=== PATIENT | male | born 1965 | race Caucasian/White ===

== ENCOUNTER 2019-05-17 11:52 | Observation (INO) ==
[2019-05-17] MEDS ORDERED: Naloxone 0.4 MG/ML INJ IVP PRN (14:06)
[2019-05-17] MEDS ORDERED: *HR* LORazepam 2 MG/ML VIAL IVP PRN (14:10)
[2019-05-17] MEDS ORDERED: Ipratropium/Albuterol Neb 3 ML IH PRN (14:30)
[2019-05-17] MEDS ORDERED: Aspirin 325 MG TABLET PO ONE (14:38)
[2019-05-17] MEDS ORDERED: *HR* Heparin 5,000 UNIT/ML VIAL IVP PRN ×2 (15:16)
[2019-05-17] MEDS ORDERED: Heparin 25,000 UNIT/250 ML D5W 25,000 UNIT/250 ML IV.SOLN IVC SCH (15:30)
[2019-05-17] MEDS ORDERED: Acetaminophen 325 MG TABLET PO ONE (15:34)
[2019-05-17 16:07] LABS: INR 1.1
[2019-05-17 16:08] LABS: Heparin anti-factor XA UFH 0.16 IU/mL (0.30-0.70)
[2019-05-17] MEDS: *HR* LORazepam 2 MG/ML VIAL IVP PRN ×3 (17:16→22:40)
[2019-05-17] MEDS: Ondansetron ODT 4 MG TAB.RAPDIS SL PRN (17:16)
[2019-05-17] MEDS ORDERED: Perflutren Lipid Microsphere 1.3 ML in 0.9 % Sodium Chloride 8.7 ML IVP ONE (17:47)
[2019-05-18] MEDS: *HR* LORazepam 2 MG/ML VIAL IVP PRN ×6 (00:18→23:10)
[2019-05-18] MEDS: Acetaminophen 325 MG TABLET PO PRN ×3 (00:19→19:55)
[2019-05-18 05:27] LABS: Hematocrit 31.7 % (37.5-50.1); Hemoglobin 10.6 g/dL (12.9-16.9); Mean Corpuscular HGB Conc 33.4 g/dL (31.6-35.5); Mean Corpuscular Hemoglobin 30.8 pg (28.0-33.3); Mean Corpuscular Volume 92.2 fL (83.0-100.0); Mean Platelet Volume 9.9 fL (9.4-12.4); Platelet Count 150 K/mcL (140-400); Red Blood Count 3.44 M/mcL (4.19-5.50); Red Cell Distribution Width 13.3 % (11.5-14.5); White Blood Count 7.6 K/mcL (4.3-11.1)
[2019-05-18 05:36] LABS: BUN/Creatinine Ratio 22 (6-26); Blood Urea Nitrogen 24 mg/dL (6-20); Calcium 8.8 mg/dL (8.6-10.3); Carbon Dioxide 25 mEq/L (23-29); Chloride 108 mEq/L (98-107); Glucose 104 mg/dL (70-105); Magnesium 1.7 mg/dL (1.6-2.6); Osmolality,Calculated 290 (280-300); Phosphorous 3.2 mg/dL (2.7-4.5); Potassium 3.9 mEq/L (3.5-5.1); Sodium 138 mEq/L (136-145); eGFR For African Americans > 60 (> 60); eGFR For Non-African Americans > 60 (> 60)
[2019-05-18] MEDS: Ondansetron ODT 4 MG TAB.RAPDIS SL PRN ×2 (05:48→13:47)
[2019-05-18] MEDS: Vitamin B Complex/Vit C/Vit E 1 EACH TABLET PO SCH (08:39)
[2019-05-18] MEDS: lisinopriL 20 MG TABLET PO SCH (08:40)
[2019-05-18] MEDS: Nicotine 14 MG PATCH.TD24 TD SCH (08:40)
[2019-05-18] MEDS: Aspirin 81 MG TAB.CHEW PO SCH (08:40)
[2019-05-18] MEDS: Folic Acid 1 MG TABLET PO SCH (08:40)
[2019-05-18] MEDS: Thiamine (B-1) 100 MG TABLET PO SCH (08:40)
[2019-05-18] MEDS: Ipratropium/Albuterol Neb 3 ML IH SCH ×2 (13:12→15:17)
[2019-05-18] MEDS: *HR* Heparin 5,000 UNIT/ML VIAL SQ SCH (17:45)
[2019-05-18] MEDS: Levalbuterol Neb 1.25 MG/3 ML IH SCH (21:40)
[2019-05-18] MEDS: *HR* LORazepam 1 MG TABLET PO SCH (22:10)
[2019-05-19] MEDS: *HR* LORazepam 2 MG/ML VIAL IVP PRN ×5 (00:33→23:49)
[2019-05-19] MEDS: Ondansetron ODT 4 MG TAB.RAPDIS SL PRN ×2 (00:33→23:39)
[2019-05-19 02:28] LABS: Basophils # 0.1 K/mcL (0.0-0.2); Basophils % 0.6 %; Eosinophils # 0.2 K/mcL (0.0-0.6); Eosinophils % 2.2 %; Hematocrit 33.4 % (37.5-50.1); Hemoglobin 11.2 g/dL (12.9-16.9); Immature Granulocytes % 0.5 % (0-4); Lymphocytes # 1.3 K/mcL (0.6-4.6); Lymphocytes % 17.4 %; Mean Corpuscular HGB Conc 33.5 g/dL (31.6-35.5); Mean Corpuscular Hemoglobin 31.5 pg (28.0-33.3); Mean Corpuscular Volume 93.8 fL (83.0-100.0); Mean Platelet Volume 10.5 fL (9.4-12.4); Monocytes # 0.3 K/mcL (0.0-1.3); Monocytes % 4.2 %; Neutrophils # 5.8 K/mcL (1.6-8.9); Platelet Count 159 K/mcL (140-400); Red Blood Count 3.56 M/mcL (4.19-5.50); Red Cell Distribution Width 13.5 % (11.5-14.5); Segmented Neutrophils % 75.1 %; White Blood Count 7.7 K/mcL (4.3-11.1)
[2019-05-19 02:30] LABS: Prothrombin Time 11.9 Seconds (9.4-12.1)
[2019-05-19 02:46] LABS: Calcium 8.8 mg/dL (8.6-10.3); Phosphorous 3.3 mg/dL (2.7-4.5); Potassium 3.7 mEq/L (3.5-5.1)
[2019-05-19] MEDS: Levalbuterol Neb 1.25 MG/3 ML IH SCH ×4 (03:34→22:15)
[2019-05-19] MEDS: *HR* Heparin 5,000 UNIT/ML VIAL SQ SCH ×2 (04:50→17:11)
[2019-05-19] MEDS: lisinopriL 20 MG TABLET PO SCH (09:00)
[2019-05-19] MEDS ORDERED: 0.9 % Sodium Chloride 1,000 ML IVC SCH (09:00)
[2019-05-19] MEDS: Vitamin B Complex/Vit C/Vit E 1 EACH TABLET PO SCH (09:00)
[2019-05-19] MEDS: Thiamine (B-1) 100 MG TABLET PO SCH (09:00)
[2019-05-19] MEDS: Folic Acid 1 MG TABLET PO SCH (09:00)
[2019-05-19] MEDS: Nicotine 14 MG PATCH.TD24 TD SCH (09:01)
[2019-05-19] MEDS: Aspirin 81 MG TAB.CHEW PO SCH (09:02)
[2019-05-19] MEDS: *HR* LORazepam 1 MG TABLET PO SCH ×2 (09:02→20:41)
[2019-05-19] MEDS: cloNIDine HCL 0.1 MG TABLET PO SCH ×2 (17:11→20:41)
[2019-05-19] MEDS: predniSONE 20 MG TABLET PO SCH (17:11)
[2019-05-19] MEDS: Nicotine 21 MG PATCH.TD24 TD SCH ×2 (21:42→23:36)
[2019-05-20 01:03] LABS: Basophils % 0.3 %; Eosinophils % 0.1 %; Hematocrit 31.7 % (37.5-50.1); Hemoglobin 10.5 g/dL (12.9-16.9); Immature Granulocytes % 0.7 % (0-4); Lymphocytes # 0.4 K/mcL (0.6-4.6); Mean Corpuscular HGB Conc 33.1 g/dL (31.6-35.5); Mean Corpuscular Hemoglobin 31.1 pg (28.0-33.3); Mean Corpuscular Volume 93.8 fL (83.0-100.0); Monocytes # 0.1 K/mcL (0.0-1.3); Monocytes % 1.9 %; Neutrophils # 6.8 K/mcL (1.6-8.9); Platelet Count 126 K/mcL (140-400); Red Blood Count 3.38 M/mcL (4.19-5.50); Red Cell Distribution Width 14.1 % (11.5-14.5); White Blood Count 7.4 K/mcL (4.3-11.1)
[2019-05-20 01:28] LABS: BUN/Creatinine Ratio 17 (6-26); Blood Urea Nitrogen 22 mg/dL (6-20); Calcium 8.6 mg/dL (8.6-10.3); Carbon Dioxide 23 mEq/L (23-29); Chloride 108 mEq/L (98-107); Glucose 196 mg/dL (70-105); Magnesium 1.4 mg/dL (1.6-2.6); Osmolality,Calculated 297 (280-300); Phosphorous 2.9 mg/dL (2.7-4.5); Potassium 4.3 mEq/L (3.5-5.1); Sodium 139 mEq/L (136-145); eGFR For African Americans > 60 (> 60); eGFR For Non-African Americans 59 (> 60)
[2019-05-20] MEDS: Levalbuterol Neb 1.25 MG/3 ML IH SCH ×4 (04:00→22:15)
[2019-05-20] MEDS: *HR* LORazepam 2 MG/ML VIAL IVP PRN ×3 (04:04→21:24)
[2019-05-20] MEDS: *HR* Heparin 5,000 UNIT/ML VIAL SQ SCH ×2 (04:05→18:07)
[2019-05-20] MEDS: Acetaminophen 325 MG TABLET PO PRN ×2 (04:24→20:46)
[2019-05-20] MEDS: cloNIDine HCL 0.1 MG TABLET PO SCH ×3 (08:51→20:45)
[2019-05-20] MEDS: *HR* LORazepam 1 MG TABLET PO SCH (08:51)
[2019-05-20] MEDS: Vitamin B Complex/Vit C/Vit E 1 EACH TABLET PO SCH (08:51)
[2019-05-20] MEDS: Aspirin 81 MG TAB.CHEW PO SCH (08:51)
[2019-05-20] MEDS: Folic Acid 1 MG TABLET PO SCH (08:51)
[2019-05-20] MEDS: Nicotine 21 MG PATCH.TD24 TD SCH (08:51)
[2019-05-20] MEDS: Thiamine (B-1) 100 MG TABLET PO SCH (08:51)
[2019-05-20] MEDS: predniSONE 20 MG TABLET PO SCH (08:51)
[2019-05-20] MEDS: lisinopriL 20 MG TABLET PO SCH (15:20)
[2019-05-20] MEDS: Ondansetron ODT 4 MG TAB.RAPDIS SL PRN (20:54)
[2019-05-21] MEDS: *HR* Heparin 5,000 UNIT/ML VIAL SQ SCH (04:19)
[2019-05-21] MEDS: *HR* LORazepam 2 MG/ML VIAL IVP PRN (04:19)
[2019-05-21] MEDS: Acetaminophen 325 MG TABLET PO PRN ×2 (04:19→13:19)
[2019-05-21] MEDS: Levalbuterol Neb 1.25 MG/3 ML IH SCH ×3 (04:30→18:18)
[2019-05-21] MEDS: Vitamin B Complex/Vit C/Vit E 1 EACH TABLET PO SCH (08:36)
[2019-05-21] MEDS: cloNIDine HCL 0.1 MG TABLET PO SCH ×2 (08:36→14:12)
[2019-05-21] MEDS: Nicotine 21 MG PATCH.TD24 TD SCH (08:36)
[2019-05-21] MEDS: Thiamine (B-1) 100 MG TABLET PO SCH (08:36)
[2019-05-21] MEDS: Folic Acid 1 MG TABLET PO SCH (08:36)
[2019-05-21] MEDS: lisinopriL 20 MG TABLET PO SCH (08:36)
[2019-05-21] MEDS: Aspirin 81 MG TAB.CHEW PO SCH (08:36)
[2019-05-21] MEDS: predniSONE 20 MG TABLET PO SCH (08:37)
[2019-05-21 18:51] VITALS: BP 156/85
== END 2019-05-21 19:35 | disposition home or self-care (01) ==
LOC: 2NENU → SUATTDRO 14:06 → 3NENU 16:40
PROVIDERS: ADMIT Family Medicine; ATTEND Internal Medicine